=== PATIENT | male | born 1990 | race Two or more races ===

== ENCOUNTER 2019-03-04 19:40 | Emergency (ER) | payer SELFPAY ==
[~2019-03-04] VITALS: Ht 170.2 cm; Wt 77.1 kg
[2019-03-04 19:44] VITALS: Ht 170.2 cm; Wt 77.1 kg
[2019-03-04 21:03] LABS: BASOPHIL % 0.6 % (0-2); RED CELL DISTRIBUTION WIDTH 13.2 % (11.5-14.5)
[2019-03-04 21:07] LABS: PLATELET COUNT 445 x10^3mcL (130-400)
[2019-03-04 21:20] LABS: CALCIUM 8.3 mg/dL (8.5-10.1); CARBON DIOXIDE 24.9 mmol/L (21-32); CHLORIDE SERUM 109 mmol/L (98-107); CREATININE SERUM 0.8 mg/dL (0.7-1.3); GFR1 > 60 mL/min; GLUCOSE SERUM 95 mg/dL (74-106); POTASSIUM SERUM 3.3 mmol/L (3.5-5.1); SODIUM SERUM 143 mmol/L (136-145)
[2019-03-04 21:25] LABS: ALKALINE PHOSPHATASE 128 U/L (46-116); ALT/SGPT 42 U/L (16-63); AST/SGOT 26 U/L (15-37); BILIRUBIN TOTAL 0.16 mg/dL (0.20-1.00); TOTAL PROTEIN, SERUM 6.6 g/dL (6.4-8.2)
[2019-03-05 06:07] VITALS: BP 135/80
== END 2019-03-05 06:07 | disposition home or self-care (01) ==
LOC: ED 19:40
PROVIDERS: Emergency Medicine
DX: F10.129 Alcohol abuse with intoxication, unspecified (principal); S60.511A Abrasion of right hand, initial encounter; X58.XXXA Exposure to other specified factors, initial encounter; Y93.89 Activity, other specified; Y92.89 Other specified places as the place of occurrence of the external cause; Y99.8 Other external cause status
CPT/HCPCS: 36415; 82962; G0480; Q0092